=== PATIENT | female | born 1955 | race American Indian/Alaskan Native ===

== ENCOUNTER 2021-04-15 15:16 | Emergency (ER) | payer BC, OTHER ==
[~2021-04-15] VITALS: Ht 162.6 cm; Wt 80.0 kg
[2021-04-15] MEDS ORDERED: HYDROCODONE/ACETAMINOPHEN 5/325MG TABLET PO STA (18:08)
[2021-04-15] MEDS ORDERED: BACITRACIN ZINC OINT UDPKT TOP ONE (18:15)
[2021-04-15] MEDS ORDERED: TETANUS, DIPHTHERIA, PERTUSSIS VAC/PF 0.5ML (>7YR OLD) IM ONE (18:15)
[2021-04-15] MEDS ORDERED: ACETAMINOPHEN 325MG TABLET PO ONE (19:00)
[2021-04-15] MEDS ORDERED: CLINDAMYCIN HCL 150MG CAPSULE PO NR (19:00)
[2021-04-15] MEDS ORDERED: IPRATROPIUM BROMIDE (0.02%) 0.5MG/2.5ML NEB HHN STA (19:12)
[2021-04-15] MEDS ORDERED: ALBUTEROL (0.083%) 2.5MG/3ML NEB HHN SCH (19:30)
[2021-04-15] MEDS ORDERED: CLIN300C12 MT (20:27)
[2021-04-15] MEDS ORDERED: ACET-2708 MT (20:27)
[2021-04-15 20:40] VITALS: BP 175/86
[2021-04-16] MEDS ORDERED: CLINDAMYCIN HCL 150MG CAPSULE PO SCH
== END 2021-04-15 20:40 | disposition home or self-care (01) ==
LOC: ER 15:16
DX: L03.113 Cellulitis of right upper limb (principal); J44.1 Chronic obstructive pulmonary disease with (acute) exacerbation
CPT/HCPCS: 73120; 90471; 90715; 94644; 99285